=== PATIENT | female | born 1980 | race Caucasian/White ===

== ENCOUNTER 2017-01-09 13:50 | Emergency (ER) | payer BC ==
[~2017-01-09] VITALS: Ht 162.6 cm; Wt 111.8 kg
[2017-01-09 14:03] VITALS: BP 152/99
--- NOTE | 2017-01-09 14:20 | NUR ---
PT AMBULATE TO BED 8.
--- NOTE | 2017-01-09 14:25 | NUR ---
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 HX: ANXIETY WITH TWO SIMILAR ANXIETY ATTACKS, HX HIGH CHOLESTEROL. PT DENIES ANY MEDS. STS PT WAS JUST HAVING A REGULAR CONVERSATION BEFORE THE EVENT. PT AAOX4 WITH STEADYA ND EVEN AMBULATION. URINE COLLECTED IN TRIAGE.
--- NOTE | 2017-01-09 15:40 | NUR ---
Patient being evaluated by physician at bedside.
[2017-01-09 16:07] VITALS: BP 144/88
--- NOTE | 2017-01-09 16:08 | NUR ---
Patient discharged with v/s stable. Written and verbal after care instructions given and explained. Patient alert, oriented and verbalized understanding of instructions. Ambulatory with steady gait. All questions addressed prior to discharge. ID band removed. Patient advised to follow up with PMD. Opportunity to ask questions provided and answered.
== END 2017-01-09 16:08 | disposition home or self-care (01) ==
LOC: MED 13:50
DX: R20.0 Anesthesia of skin (principal); F41.9 Anxiety disorder, unspecified; E78.00 Pure hypercholesterolemia, unspecified; Z90.49 Acquired absence of other specified parts of digestive tract
CPT/HCPCS: 81002; 81025; 99283